=== PATIENT | male | born 1990 | race American Indian/Alaskan Native ===

== ENCOUNTER 2021-01-05 01:40 | Emergency (ER) | payer OTHER ==
[2021-01-05] MEDS ORDERED: LIDOCAINE (2%) 20 MG/1 ML VIAL 20 ML MDV INFILTRATI STA (02:59)
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
--- NOTE | 2021-01-05 04:01 | Cat Scan Report ---
CT HEAD WITHOUT CONTRAST INDICATION / CLINICAL INFORMATION: headache. TECHNIQUE: All CT scans at this location are performed using CT dose reduction for ALARA by means of automated exposure control. COMPARISON: None available. FINDINGS: BRAIN PARENCHYMA: No acute intracranial hemorrhage. No evidence of recent infarct. No mass effect or midline shift. VENTRICULAR SYSTEM/EXTRA-AXIAL SPACES: Ventricles are normal for age. No extra-axial fluid collection . ORBITS: Normal as visualized. SKELETAL SYSTEM/SOFT TISSUES: Normal bones and soft tissues. PARANASAL SINUSES/MASTOID AIR CELLS: No significant abnormality. ADDITIONAL FINDINGS: None. IMPRESSION: 1. No acute intracranial abnormality. Signer Name: Cliff Caceres MD Signed: 01/05/2021 3:56 AM Workstation Name: [id number]
[2021-01-05 07:10] VITALS: BP 134/74
== END 2021-01-05 07:08 | disposition home or self-care (01) ==
LOC: ED 01:40
DX: S01.112A Laceration without foreign body of left eyelid and periocular area, initial encounter (principal); V49.49XA Driver injured in collision with other motor vehicles in traffic accident, initial encounter; Y93.89 Activity, other specified; Y92.89 Other specified places as the place of occurrence of the external cause; Y99.8 Other external cause status
CPT/HCPCS: 70450; 99283

== ENCOUNTER 2021-01-11 17:11 | Emergency (ER) | payer SELFPAY ==
[2021-01-11] MEDS ORDERED: ACETAMINOPHEN 325 MG TAB PO ONE (18:01)
[2021-01-11] MEDS ORDERED: METOCLOPRAMIDE 10 MG/2 ML INJ IV ONE (18:01)
[2021-01-11] MEDS ORDERED: diphenhydrAMINE 50 MG/ML VIAL IV ONE (18:01)
[2021-01-11] MEDS ORDERED: SODIUM CHLORIDE 0.9% 500 ML 500 ML IV ONE (18:01)
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
[2021-01-11 18:38] LABS: Basophils % (Auto) 1.1 % (0.0-1.8); Eosinophils # (Auto) 0.1 K/mm3 (0.0-0.4); Eosinophils % (Auto) 3.2 % (0.0-4.3); Hematocrit 43.1 % (35.5-45.6); Hemoglobin 14.2 gm/dl (11.8-15.2); Lymphocytes % (Auto) 45.1 % (13.4-35.0); Mean Corpuscular HGB Conc 33 % (32-34); Mean Corpuscular Volume 86 fl (84-94); Monocytes # (Auto) 0.4 K/mm3 (0.0-0.8); Monocytes % (Auto) 9.2 % (0.0-7.3); Platelet Count 198 K/mm3 (140-440); Red Blood Count 5.02 M/mm3 (3.65-5.03); Red Cell Distribution Width 13.7 % (13.2-15.2)
[2021-01-11 18:51] LABS: BUN/Creatinine Ratio 20; Blood Urea Nitrogen 16 mg/dL (9-20); Hemolysis Index 6
--- NOTE | 2021-01-11 20:02 | Cat Scan Report ---
CT head/brain wo con INDICATION: Syncope. TECHNIQUE: Routine CT head without contrast. All CT scans at this location are performed using CT dos e reduction for ALARA by means of automated exposure control. COMPARISON: None. FINDINGS: BRAIN / INTRACRANIAL CONTENTS: No acute hemorrhage, mass effect, midline shift, or hydrocephalus. No appreciable acute large territorial or lacunar infarct. No chronic infarct or focal atrophy. Normal b rain volume and ventricular/sulcal size for age. ORBITS: No significant abnormality of visualized orbits. SINUSES / MASTOIDS: No significant abnormality of visualized sinuses and mastoid air cells. ADDITIONAL FINDINGS: None. IMPRESSION: 1. No acute intracranial abnormality. Signer Name: Mohinder Rodriguez MD Signed: 01/11/2021 7:57 PM Workstation Name: [id number]
--- NOTE | 2021-01-11 20:02 | Cat Scan Report ---
CT CERVICAL SPINE WITHOUT CONTRAST INDICATION: Syncope. TECHNIQUE: Axial CT images of the spine were obtained. Sagittal and coronal reformatted images were produced. Al l CT scans at this location are performed using CT dose reduction for ALARA by means of automated exp osure control. COMPARISON: None available. FINDINGS: ACUTE FRACTURE(S) OR SUBLUXATION: None. SPINAL DEGENERATIVE CHANGES: No significant degenerative changes. PARASPINAL SOFT TISSUES: No soft tissue swelling or other acute abnormalities. ADDITIONAL FINDINGS: No significant additional findings. IMPRESSION: 1. No acute fracture or subluxation in the spine in neutral position. Signer Name: Mohinder Rodriguez MD Signed: 01/11/2021 7:58 PM Workstation Name: [id number]
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
[2021-01-11 21:31] VITALS: BP 131/77
--- NOTE | 2021-01-12 12:27 | Electrocardiograph Report ---
[facility] Test Date: 2021-01-11 Test Time: 18:09:10 Pat Name: BRYCE LOCO Department: Room: Gender: M Ecmo Specialist: DARCIE : 1990 Requested By: BRYCE RENTERIA Order Number: [id number] Reading MD: Flavia Grayson Measurements Intervals [place] Rate: 63 P: 71 AK: 155 QRS: 84 QRSD: 106 T: 62 QT: 356 QTc: 364 Interpretive Statements Sinus rhythm ST elevation suggests acute pericarditis No previous ECG available for comparison Electronically Signed On 01-12-2021 12:27:15 EDT by Flavia Grayson
== END 2021-01-11 21:59 | disposition home or self-care (01) ==
LOC: ED 17:11
DX: R51.9 Headache, unspecified (principal); M79.601 Pain in right arm; M54.2 Cervicalgia; Z91.011 Allergy to milk products; Z79.899 Other long term (current) drug therapy
CPT/HCPCS: 36415; 70450; 70496; 70498; 72125; 80048; 82550; 83735; 84484; 85025; 93005; 96361; 96374; 96375; 99284; J1200; J2765; J7040; Q9967